=== PATIENT | female | born 1965 ===

== ENCOUNTER 2020-01-07 22:20 | Outpatient (REF) | payer OTHER, SELFPAY ==
[2020-01-07 22:06] LABS: Hemoglobin A1C 5.9 % (3.8-5.6)
[2020-01-07 22:15] LABS: Calculated LDL 101 mg/dL (<100); Cholesterol 266 mg/dL (<200); HDL Cholesterol 143 mg/dL (40-60); TSH 1.51 uIU/mL (0.36-3.74); Triglyceride 114 mg/dL (<150)
== END 2020-01-07 22:40 ==
LOC: NCHCN 22:20
PROVIDERS: PCP Nurse Practitioner Family; Visit Provider Nurse Practitioner Family
DX: Z00.00 Encounter for general adult medical examination without abnormal findings (principal); Z13.220 Encounter for screening for lipoid disorders; Z13.29 Encounter for screening for other suspected endocrine disorder; Z13.1 Encounter for screening for diabetes mellitus
CPT/HCPCS: 80061; 83036; 84443

== ENCOUNTER 2020-08-18 16:11 | Outpatient (REF) | payer OTHER, SELFPAY ==
[2020-08-22 04:13] LABS: SARS-CoV-2 RNA Undetected (Undetected); SARS-CoV-2 Specimen Source Nasopharynx
== END 2020-08-18 16:31 ==
LOC: NCHCN 16:11
PROVIDERS: PCP Nurse Practitioner Family; Visit Provider Nurse Practitioner Family
DX: Z20.828 Contact with and (suspected) exposure to other viral communicable diseases (principal)
CPT/HCPCS: U0003

== ENCOUNTER 2021-02-23 10:00 | Outpatient (REF) | payer OTHER, SELFPAY ==
[2021-02-23 14:15] LABS: HGB 13.6 g/dL (11.2-15.7); MCH 28.9 pg (27.0-33.0); MCHC 33.2 % (32.0-36.0); MCV 87.2 fL (80-95); MPV 10.8 fL (8.0-11.0); Platelet Count 261 10^3/uL (130-400); RDW 11.9 % (11.7-14.6); RDW-SD 38.1 fL; WBC 3.98 10^3/uL (4.4-10.8)
[2021-02-23 14:35] LABS: Anion Gap 8.5 mmol/L (3-11); BUN 13 mg/dL (7-18); CO2 27.5 mmol/L (21.0-32.0); CREATININE 0.9 mg/dL (0.55-1.02); Calcium 9.1 mg/dL (8.5-10.1); Chloride 105 mmol/L (98-107); Cholesterol 265 mg/dL (<200); Glucose 94 mg/dL (74-106); Potassium 4.3 mmol/L (3.5-5.1); Sodium 141 mmol/L (136-145); TSH 1.76 uIU/mL (0.36-3.74); Triglyceride 52 mg/dL (<150)
[2021-02-23 14:38] LABS: Calculated LDL 95 mg/dL (<100); HDL Cholesterol 160 mg/dL (40-60)
== END 2021-02-23 10:01 | disposition home or self-care (01) ==
LOC: NCHCN 10:00
PROVIDERS: PCP Nurse Practitioner Family; Visit Provider Nurse Practitioner Family
DX: Z00.00 Encounter for general adult medical examination without abnormal findings (principal); Z13.220 Encounter for screening for lipoid disorders; F41.8 Other specified anxiety disorders; Z13.228 Encounter for screening for other metabolic disorders; Z13.0 Encounter for screening for diseases of the blood and blood-forming organs and certain disorders involving the immune mechanism; Z78.0 Asymptomatic menopausal state
CPT/HCPCS: 80048; 80061; 85027; 84443